=== PATIENT | female | born 1960 | race Caucasian/White ===

== ENCOUNTER 2021-07-18 17:10 | Emergency (ER) | payer SELFPAY ==
[2021-07-18] MEDS ORDERED: Ondansetron 4 MG Tab.DIS PO ONE (17:11)
[2021-07-18 18:16] VITALS: BP 136/79; PULSE 79
[2021-07-18] MEDS ORDERED: Sodium Chloride 0.9% 1,000 ML IV ONE (19:49)
[2021-07-18] MEDS ORDERED: Ondansetron 4 MG/2 ML SDV IVPUSH ONE (19:50)
[2021-07-18 20:31] LABS: ANION GAP 13.5 mEq/L (7-13); CHLORIDE,CL 100 mmol/L (98-107); SODIUM,NA 136 mmol/L (136-145)
[2021-07-18] MEDS ORDERED: Ondansetron 4 MG Tab.DIS ONE (21:01)
--- NOTE | 2021-07-18 21:08 | EDM.PDOC ---
ED HPI GENERAL MEDICAL PROBLEM - General Chief Complaint: General Stated Complaint: 98.4. REACTION TO COVID SHOT/WAS EXPOSED TO COVID. Time Seen by Provider: 07/18/21 19:15 Source of Information: Reports: Patient History Limitations: Reports: No Limitations - History of Present Illness INITIAL COMMENTS - FREE TEXT/NARRATIVE: Onset sx Sunday, Girls weekend prior with 12 person, since 5 have been positive. C/o fatigue, No SOB, decreased appetite, partial losss of taste and smell COVID vaccine last on . 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: Musculoskeletal History: Reports: None Neurological History: Reports: None Psychiatric History: Reports: None Endocrine/Metabolic History: Reports: Hypothyroidism Hematologic History: Reports: None Immunologic History: Reports: None Oncologic (Cancer) History: Reports: None Dermatologic History: Reports: None - Past Surgical History Head Surgeries/Procedures: Reports: None HEENT Surgical History: Reports: None Cardiovascular Surgical History: Reports: None Respiratory Surgical History: Reports: None GI Surgical History: Reports: None Female Surgical History: Reports: Breast Biopsy, Tubal Ligation Endocrine Surgical History: Reports: None Neurological Surgical History: Reports: None Musculoskeletal Surgical History: Reports: Carpal Tunnel, ORIF Oncologic Surgical History: Reports: None Dermatological Surgical History: Reports: None Social & Family History - Tobacco Use Tobacco Use Status *Q: Never Tobacco User Second Hand Smoke Exposure: No - Recreational Drug Use Recreational Drug Use: No ED ROS GENERAL - Review of Systems Review Of Systems: Comprehensive ROS is negative, except as noted in HPI. ED EXAM, GENERAL - Physical Exam Exam: See Below Exam Limited By: No Limitations General Appearance: Alert, No Apparent Distress Eye Exam: Bilateral Eye: EOMI Ears: Normal External Exam, Hearing Grossly Normal Nose: Normal Inspection Throat/Mouth: Normal Inspection, Normal Voice, No Airway Compromise Head: Atraumatic, Normocephalic Neck: Normal Inspection Respiratory/Chest: No Respiratory Distress, Lungs Clear, Normal Breath Sounds Cardiovascular: Normal Peripheral Pulses, Regular Rate, Rhythm GI/Abdominal: Normal Bowel Sounds, Soft Back Exam: Normal Inspection, Full Range of Motion Neurological: Alert, Oriented, Normal Cognition, No Motor/Sensory Deficits Psychiatric: Normal Affect, Normal Mood Skin Exam: Warm, Dry, Intact Course - Vital Signs Last Recorded V/S: Last Vital Signs Temp 99 F 07/18/21 18:10 Pulse 79 07/18/21 18:10 Resp 20 07/18/21 18:10 BP 136/79 07/18/21 18:10 Pulse Ox 94 L 07/18/21 18:10 - Orders/Labs/Meds Labs: Laboratory Tests 07/18/21 07/18/21 07/18/21 Range/Units 17:25 20:10 20:10 WBC 5.0 (5.0-10.0) 10^3/uL RBC 4.66 (4.2-5.4) 10^6/uL Hgb 13.3 (12.0-16.0) g/dL Hct 42.0 (37.0-47.0) % MCV 90.1 (80-100) fL MCH 28.5 (27.0-34.0) pg MCHC 31.7 L (33.0-35.0) g/dL Plt Count 173 (150-450) 10^3/uL Neut % (Auto) 63.2 (42.2-75.2) % Lymph % (Auto) 27.8 (20.5-50.1) % [place] % (Auto) 8.8 H (2-8) % Eos % (Auto) 0.0 L (1.0-3.0) % Baso % (Auto) 0.2 (0.0-1.0) % D-Dimer, Quantitative 104 (0-400) ng/mL Sodium (136-145) mmol/L Potassium (3.5-5.1) mmol/L Chloride (98-107) mmol/L Carbon Dioxide (21-32) mmol/L Anion Gap (7-13) mEq/L BUN (7-18) mg/dL Creatinine (0.55-1.02) mg/dL Est Cr Clr Drug Dosing Estimated GFR (MDRD) BUN/Creatinine Ratio (No establ ref range) Glucose (70-99) mg/dL Lactic Acid (0.4-2.0) mmol/L Calcium (8.5-10.1) mg/dL Total Bilirubin (0.2-1.0) mg/dL AST (15-37) U/L ALT (14-59) U/L Alkaline Phosphatase (46-116) U/L C-Reactive Protein (0.0-0.9) mg/dL Total Protein (6.4-8.2) g/dL Albumin (3.4-5.0) g/dL Globulin Albumin/Globulin Ratio SARS-CoV-2 RNA (ODELL) Positive H (NEGATIVE) 07/18/21 07/18/21 Range/Units 20:10 20:10 WBC (5.0-10.0) 10^3/uL RBC (4.2-5.4) 10^6/uL Hgb (12.0-16.0) g/dL Hct (37.0-47.0) % MCV (80-100) fL MCH (27.0-34.0) pg MCHC (33.0-35.0) g/dL Plt Count (150-450) 10^3/uL Neut % (Auto) (42.2-75.2) % Lymph % (Auto) (20.5-50.1) % [place] % (Auto) (2-8) % Eos % (Auto) (1.0-3.0) % Baso % (Auto) (0.0-1.0) % D-Dimer, Quantitative (0-400) ng/mL Sodium 136 (136-145) mmol/L Potassium 4.5 (3.5-5.1) mmol/L Chloride 100 (98-107) mmol/L Carbon Dioxide 27 (21-32) mmol/L Anion Gap 13.5 H (7-13) mEq/L BUN 12 (7-18) mg/dL Creatinine 0.98 (0.55-1.02) mg/dL Est Cr Clr Drug Dosing TNP Estimated GFR (MDRD) 58 BUN/Creatinine Ratio 12.2 (No establ ref range) Glucose 98 (70-99) mg/dL Lactic Acid 0.6 (0.4-2.0) mmol/L Calcium 8.4 L (8.5-10.1) mg/dL Total Bilirubin 0.4 (0.2-1.0) mg/dL AST 38 H (15-37) U/L ALT 37 (14-59) U/L Alkaline Phosphatase 76 (46-116) U/L C-Reactive Protein 0.6 (0.0-0.9) mg/dL Total Protein 7.5 (6.4-8.2) g/dL Albumin 3.9 (3.4-5.0) g/dL Globulin 3.6 Albumin/Globulin Ratio 1.1 SARS-CoV-2 RNA (ODELL) (NEGATIVE) Meds: Medications Discontinued Medications Generic Name Dose Route Start Last Admin Trade Name Sim PRN Reason Stop Dose Admin Sodium Chloride 1,000 mls @ 999 mls/hr 07/18/21 19:49 07/18/21 20:09 Normal Saline IV 07/18/21 20:49 999 mls/hr .BOLUS ONE Administration Ondansetron HCl 4 mg 07/18/21 19:50 07/18/21 20:09 Ondansetron 4 Mg/2 Ml Sdv IVPUSH 07/18/21 19:51 4 mg ONETIME ONE Administration Ondansetron HCl Confirm 07/18/21 21:01 07/18/21 21:20 Ondansetron 4 Mg Tab.Dis Administered 07/18/21 21:02 Not Given Dose 12 mg .ROUTE .STK-MED ONE Ondansetron HCl 4 mg 07/18/21 17:11 Ondansetron 4 Mg Tab.Dis PO 07/18/21 17:12 .STK-MED ONE Departure - Departure Time of Disposition: 21:05 Disposition: Home, Self-Care 01 Condition: Good Clinical Impression: COVID-19 - Discharge Information *PRESCRIPTION DRUG MONITORING PROGRAM REVIEWED*: No *COPY OF PRESCRIPTION DRUG MONITORING REPORT IN PATIENT SVETLANA: No Instructions: COVID-19 Frequently Asked Questions, What You Should Know About COVID-19 to Protect Yourself and Others - [facility], 10 Things You Can Do to Manage Your COVID-19 Symptoms at Home - [facility] (05/12/2020), COVID-19: Quarantine vs. Isolation - [facility] (10/28/2020) Forms: ED Department Discharge Additional Instructions: rest diet as tolerated encourage fluids tylenol 500mg every 4 hours as needed for discomfort/fever zofran 4mg ODT every 4 hours as needed for nausea quarantine Urgent follow up if severe difficulty breathing Sepsis Event Note (ED) - Evaluation Sepsis Screening Result: No Definite Risk
== END 2021-07-18 21:20 | disposition home or self-care (01) ==
LOC: DL.ED 17:10
DX: U07.1 COVID-19 (principal); E03.9 Hypothyroidism, unspecified; Z88.8 Allergy status to other drugs, medicaments and biological substances; Z79.899 Other long term (current) drug therapy
CPT/HCPCS: 36415; 80053; 83605; 85025; 85379; 86140; 87635; 96374; 99283; A9270; J2405; J7030; U0002